=== PATIENT | male | born 1985 | race African-American/Black ===

== ENCOUNTER 2017-11-16 21:23 | Emergency (ER) | payer SELFPAY ==
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
[2017-11-16] MEDS ORDERED: DIPHTH,PERTUSS(ACELL),TET 0.5 ML DISP.SYRIN IM ONE (22:04)
[2017-11-16 22:07] VITALS: BP 159/97; PULSE 139; TEMP 98.1; BMI 26.5
[2017-11-17] MEDS ORDERED: LIDOCAINE HCL 2% (20ML MULTI-DOSE VIAL) NR ONE (01:13)
== END 2017-11-17 02:30 | disposition home or self-care (01) ==
LOC: JER 21:23
PROC: 0HQ0XZZ Repair Scalp Skin, External Approach (ICD-10-PCS; principal; 2017-11-16)
DX: S01.01XA Laceration without foreign body of scalp, initial encounter (principal); Y00.XXXA Assault by blunt object, initial encounter; Y93.89 Activity, other specified; Y92.9 Unspecified place or not applicable; Y99.8 Other external cause status
CPT/HCPCS: 70450-TC; 99281-25